=== PATIENT | female | born 1960 | race Caucasian/White ===

== ENCOUNTER 2017-01-01 06:06 | Day surgery (SDC) | payer MEDICAID ==
[~2017-01-01] VITALS: Ht 161.3 cm; Wt 58.6 kg
[~2017-01-01 06:06] MED LIST: FLUT16H NASAL; RANI150T7 PO
[2017-01-01] MEDS ORDERED: SODIUM CHLORIDE 0.9% 1,000 ML IV ONE ×2 (06:16→07:00)
[2017-01-01] MEDS ORDERED: MIDAZOLAM HCL 2 MG/2 ML VIAL ONE (07:18)
[2017-01-01] MEDS ORDERED: FentaNYL CITRATE-PF 100 MCG/2 ML VIAL ONE (07:18)
[2017-01-01] MEDS ORDERED: MethylPREDNISolone SOD SUCC 125 MG/2 ML VIAL IVP ONE (09:15)
[2017-01-01] MEDS ORDERED: MethylPREDNISolone SOD SUCC 125 MG/2 ML VIAL ONE (09:24)
[2017-01-01] MEDS ORDERED: ALBUTEROL SULFATE 2.5 MG/0.5 ML NEB SOLUTION NEB ONE (16:33)
[2017-01-01] MEDS ORDERED: LIDOCAINE HCL 2% 30 ML JELLY TP ONE (16:33)
[2017-01-01] MEDS ORDERED: BENZOCAINE 20% 50 MCG/SPRAY 57 GM TP ONE (16:33)
[2017-01-01] MEDS ORDERED: LIDOCAINE HCL 4% 50 ML SOLUTION TP ONE (16:33)
[2017-01-01] MEDS ORDERED: OXYGEN THERAPY IH SCH (20:00)
== END 2017-01-01 10:20 | disposition home or self-care (01) ==
LOC: SURGERY 06:06
PROVIDERS: ATTEND Internal Medicine Critical Care Medicine
DX: R91.1 Solitary pulmonary nodule (principal); B37.0 Candidal stomatitis
CPT/HCPCS: 31623; 31624; 71010; 87015 ×2; 87070; 87101; 87205; 87220; 88108; 88312; 94640; J2250; J2930; J3010; J7030